=== PATIENT | female | born 1965 | race Caucasian/White ===

== ENCOUNTER 2017-11-18 11:48 | Inpatient (IN) | payer MEDICARE ==
[~2017-11-18] VITALS: Ht 165.1 cm; Wt 86.2 kg
--- NOTE | 2017-11-18 12:10 | NUR ---
Patient observed in waiting area attempting to push past her family and elope the facility. Security contacted for safety.
--- NOTE | 2017-11-18 13:14 | NUR ---
Patient refusing care, attempting to elope from family and hospital. ERMD notified
[2017-11-18] MEDS ORDERED: CARB200C4 PO (13:55)
[2017-11-18] MEDS ORDERED: ESCI10TA55 PO (13:55)
[2017-11-18] MEDS ORDERED: QUET100T31 PO (13:55)
[2017-11-18] MEDS ORDERED: DONE10TA44 PO (13:55)
--- NOTE | 2017-11-18 14:00 | NUR ---
Patient continuing to refuse care and attempting to elope. JASPREET Luna, speaking with family members. Patient attempting to push past her staff and family to elope. Patient is A/O x1, only speaking "Emerald" and "Huyen" in response to questions from staff. Henry PADRON called, security at bedside for safety.
[2017-11-18] MEDS ORDERED: LORAZEPAM 2 MG/1 ML VIAL ONE (14:03)
[2017-11-18] MEDS ORDERED: diphenhydrAMINE 50 MG/1 ML VIAL ONE (14:03)
[2017-11-18] MEDS ORDERED: HALOPERIDOL LACTATE 5 MG/1 ML VIAL ONE (14:03)
[2017-11-18] MEDS ORDERED: LORAZEPAM 2 MG/1 ML VIAL IM ONE (14:30)
[2017-11-18] MEDS ORDERED: HALOPERIDOL LACTATE 5 MG/1 ML VIAL IM ONE (14:30)
[2017-11-18] MEDS ORDERED: diphenhydrAMINE 50 MG/1 ML VIAL IM ONE (14:30)
[2017-11-18 15:27] LABS: *BILIRUBIN,URIN NEGATIVE (NEGATIVE); *BLOOD, URINE 1+ (NEGATIVE); *CLARITY,URINE SLIGHTLY CLOUDY (CLEAR); *COLOR,URINE YELLOW (YELLOW); *KETONES,URINE NEGATIVE (NEGATIVE); *PROTEIN,URINE NEGATIVE (NEGATIVE); *UROBILINOGEN,URINE 0.2 E.U./dl (NORMAL); LEUKOCYTE ESTERASE ,URINE 2+ (NEGATIVE); NITRITE, URINE POSITIVE (NEGATIVE); PH,URINE 5.5 (5.0-8.0); UGLUCOSE NEGATIVE (NEGATIVE)
[2017-11-18 15:29] LABS: BASOPHILS # (AUTO) 0.1 K/uL (0.0-8.0); BASOPHILS % (AUTO) 1.1 % (0.0-2.0); EOSINOPHILS # (AUTO) 0.1 K/uL (0.0-0.7); HEMATOCRIT 38.5 % (31.2-41.9); HEMOGLOBIN 13.1 g/dL (10.9-14.3); LYMPHOCYTES # (AUTO) 1.5 K/uL (20.0-40.0); LYMPHOCYTES % (AUTO) 25.1 % (20.5-51.5); MEAN CORPUSCULAR HEMOGLOBIN 28.8 uug (24.7-32.8); MEAN CORPUSCULAR HGB CONC 34 g/dL (32.3-35.6); MEAN CORPUSCULAR VOLUME 84.3 fL (75.5-95.3); MONOCYTES # (AUTO) 0.5 K/uL (2.0-10.0); MONOCYTES % (AUTO) 8.7 % (0.0-11.0); NEUTROPHILS # (AUTO) 3.8 K/uL (1.8-8.9); NEUTROPHILS % (AUTO) 64.1 % (38.5-71.5); PLATELET COUNT (AUTO) 280 K/uL (179-408); RED BLOOD CELL COUNT(AUTO) 4.57 MIL/uL (3.63-4.92)
[2017-11-18 15:40] LABS: ETHANOL < 3 MG/DL (0-0)
[2017-11-18 15:44] LABS: *AMPHETAMINE, URINE NEGATIVE (NEGATIVE); *BARBITURATE, URINE NEGATIVE (NEGATIVE); *CANNABINOID, URINE NEGATIVE (NEGATIVE); *COCCAINE, URINE NEGATIVE (NEGATIVE); *OPIATE, URINE NEGATIVE (NEGATIVE); *PHENCYCLIDINE SCREEN,URINE NEGATIVE (NEGATIVE)
[2017-11-18 15:54] LABS: BACTERIA,URINE MANY /HPF (NONE SEEN); SQUAMOUS EPITHELIAL CELL,UR FEW /HPF (NONE SEEN); WBC,URINE 20-50 /HPF (0-3)
[2017-11-18 15:55] LABS: THYROID STIMULATING HORMONE 2.742 mIU/mL (0.358-3.740)
[2017-11-18 15:57] LABS: ALANINE AMINOTRANSFERASE 21 U/L (14-59); ALKALINE PHOSPHATASE 182 U/L (50-136); ASPARTATE AMINOTRANSFERASE 23 U/L (15-37); BILIRUBIN,DIRECT 0.1 mg/dL (0.0-0.2); BILIRUBIN,TOTAL 0.2 mg/dL (0.2-1.0); CARBON DIOXIDE 23 mmol/L (21-32); CHLORIDE 104 mmol/L (98-107); CREATININE 1.1 mg/dL (0.6-1.3); GLUCOSE 88 mg/dL (74-106); POTASSIUM 4.1 mmol/L (3.5-5.1); TOTAL PROTEIN, SERUM 7.6 g/dL (6.4-8.2); UREA NITROGEN, BLOOD 16 mg/dL (7-18)
[2017-11-18 16:12] LABS: ACETAMINOPHEN < 2.0 ug/mL (10-30)
[2017-11-18] MEDS ORDERED: GENTAMICIN SULFATE INJ 80 MG in IV DEXTROSE 5% 100 ML IV ONE (16:30)
[2017-11-18] MEDS ORDERED: IV NORMAL SALINE 1000 ML BAG IV ONE (16:30)
[2017-11-18] MEDS ORDERED: LEVOFLOXACIN 750MG/D5W 150 ML IV ONE ×2 (16:30→17:39)
--- NOTE | 2017-11-18 16:38 | NUR ---
Call placed to [facility], Dr. Miner will be paged.
[2017-11-18] MEDS ORDERED: GENTAMICIN SULFATE 80 MG/2 ML VIAL ONE (16:50)
--- NOTE | 2017-11-18 18:15 | NUR ---
Pt. admitted to TELE, under care of Dr. Miner Belongs List completed
--- NOTE | 2017-11-18 18:20 | NUR ---
PT ARRIVED TO UNIT ON GURNEY, CALM, COOPERATIVE, CONFUSED, AOX1, SPEECH GARBLED AND INCOHERENT, SKIN INTACT, IV SITE INTACT, CONTINUE FLUIDS. RESTING IN BED, NO SIGNS OF DISTRESS AT THIS TIME. UNABLE TO ANSWER QUESTIONS DURING ADMISSION. CONTINUE TO MONITOR.
[2017-11-18 18:42] VITALS: BP 128/69
[2017-11-18 19:00] VITALS: BP 124/88
[2017-11-18] MEDS ORDERED: IV 1/2NS 1000 ML 1,000 ML IV PRN (20:00)
[2017-11-18] MEDS ORDERED: ACETAMINOPHEN 325 MG TABLET PO PRN (20:00)
[2017-11-18] MEDS ORDERED: QUETIAPINE FUMARATE 100 MG TABLET PO ONE (20:00)
[2017-11-18] MEDS ORDERED: MORPHINE SULFATE 4 MG/1 ML DISP.SYRIN IV PRN (20:00)
[2017-11-18] MEDS ORDERED: MAGNESIUM HYDROXIDE 30 ML LIQUID UDC PO PRN (20:00)
[2017-11-18] MEDS: DOCUSATE SODIUM 100 MG CAPSULE PO SCH (21:00)
[2017-11-18] MEDS ORDERED: CEFTRIAXONE 1 G VIAL ONE (23:21)
[2017-11-18] MEDS: CEFTRIAXONE 1 G in IV DEXTROSE 5% 50 ML IV SCH (23:48)
[2017-11-19] VITALS (7 sets, daily range): BP systolic 115–134; BP diastolic 56–71
[2017-11-19] MEDS: PANTOPRAZOLE SODIUM 40 MG TABLET.DR PO SCH (06:24)
[2017-11-19 06:39] LABS: BASOPHILS % (AUTO) 0.9 % (0.0-2.0); EOSINOPHILS # (AUTO) 0.1 K/uL (0.0-0.7); EOSINOPHILS % (AUTO) 1.1 % (0.0-7.0); HEMATOCRIT 39.6 % (31.2-41.9); HEMOGLOBIN 13.2 g/dL (10.9-14.3); LYMPHOCYTES # (AUTO) 1.3 K/uL (20.0-40.0); LYMPHOCYTES % (AUTO) 24.1 % (20.5-51.5); MEAN CORPUSCULAR HEMOGLOBIN 28.3 uug (24.7-32.8); MEAN CORPUSCULAR HGB CONC 33 g/dL (32.3-35.6); MONOCYTES # (AUTO) 0.5 K/uL (2.0-10.0); MONOCYTES % (AUTO) 9.6 % (0.0-11.0); NEUTROPHILS # (AUTO) 3.3 K/uL (1.8-8.9); NEUTROPHILS % (AUTO) 64.3 % (38.5-71.5); PLATELET COUNT (AUTO) 238 K/uL (179-408); RED BLOOD CELL COUNT(AUTO) 4.66 MIL/uL (3.63-4.92); WHITE BLOOD COUNT (AUTO) 5.2 K/uL (3.8-11.8)
[2017-11-19 07:01] LABS: BILIRUBIN,TOTAL 0.2 mg/dL (0.2-1.0); CREATININE 0.9 mg/dL (0.6-1.3); MAGNESIUM 1.8 mg/dL (1.8-2.4); PHOSPHOROUS 3.1 mg/dL (2.5-4.9); TOTAL PROTEIN, SERUM 6.9 g/dL (6.4-8.2)
[2017-11-19 07:08] LABS: THYROID STIMULATING HORMONE 7.49 mIU/mL (0.358-3.740)
[2017-11-19] MEDS: CARBAMAZEPINE 200 MG TABLET PO SCH ×2 (08:23→21:29)
[2017-11-19] MEDS: QUETIAPINE FUMARATE 100 MG TABLET PO SCH ×3 (08:23→16:14)
[2017-11-19] MEDS ORDERED: ESCITALOPRAM OXALATE 10 MG TABLET PO SCH (09:00)
--- NOTE | 2017-11-19 17:15 | NUR ---
Restarted IV line on the right hand 22g. Pt was compliant and stated no pain, tolerated procedure well.
[2017-11-19] MEDS: LORAZEPAM 2 MG/1 ML VIAL IV PRN (19:36)
[2017-11-19] MEDS: CEFTRIAXONE 1 G in IV DEXTROSE 5% 50 ML IV SCH (20:08)
[2017-11-19] MEDS: ATORVASTATIN 20 MG TABLET PO SCH (21:29)
[2017-11-19] MEDS: DOCUSATE SODIUM 100 MG CAPSULE PO SCH (21:29)
--- NOTE | 2017-11-19 21:31 | NUR ---
pt pulled out IV line when attempting to get out of bed again. At this time pt being taken down to CT scan. Compliant with medications at this time. Will restart IV line when she returns.
[2017-11-19] MEDS ORDERED: LORAZEPAM 2 MG/1 ML VIAL IM ONE (22:35)
[2017-11-20] MEDS: LORAZEPAM 2 MG/1 ML VIAL IV PRN ×2 (01:36→20:30)
--- NOTE | 2017-11-20 02:03 | NUR ---
RESTARTED IV TO LEFT FOREARM #20. PATENT AND FLUSHING WELL.
--- NOTE | 2017-11-20 05:14 | NUR ---
Pt sleeping at this time. Was awake all night, trying to get out of bed and out of the room, trying to lift the mattress. Patient oriented to name only, still confused about her situation. Sitter continues to be at bedside.
--- NOTE | 2017-11-20 07:00 | NUR ---
Received patient laying in bed, asleep, in no acute distress. IV site on left hand intact. 1:1 sitter at bedside.
[2017-11-20] MEDS: CARBAMAZEPINE 200 MG TABLET PO SCH ×2 (08:33→20:32)
[2017-11-20] MEDS: QUETIAPINE FUMARATE 100 MG TABLET PO SCH ×3 (08:33→17:11)
[2017-11-20] MEDS: PANTOPRAZOLE SODIUM 40 MG TABLET.DR PO SCH (08:33)
[2017-11-20] MEDS: LEVOTHYROXINE SODIUM 25 MCG TABLET PO SCH (08:33)
[2017-11-20] MEDS: ASPIRIN EC 81 MG TABLET.DR PO SCH (08:33)
[2017-11-20 11:25] VITALS: BP 115/61
--- NOTE | 2017-11-20 12:37 | NUR ---
Patient is in the room, eating lunch at this time. Family at bedside. Patient is calm, in no acute distress. No episode of agitation noted. Will continue to monitor.
[2017-11-20 16:00] VITALS: BP 113/70
--- NOTE | 2017-11-20 18:14 | NUR ---
End of shift note: Patient is awake, alert and oriented x1. In no acute distress. No episode of agitation noted at this time. patient is calm, and resting in bed all day. 1:1 sitter at bedside for safety. All needs attended and met. Will continue to monitor.
--- NOTE | 2017-11-20 19:00 | NUR ---
Received patient in bed. 1:1 Sitter at bedside. Alert and oriented x1. Verbally responsive. Able to make needs known. Denies any pain and discomfort at this time. No acute distress. No SOB. IV site on left arm patent and intact. Patient refusing continuous IVF of 1/2 NS at this time. Kept clean and dry. All needs attended to promptly. Call light within reach. Will continue to monitor.
[2017-11-20 20:13] VITALS: BP 126/80
[2017-11-20] MEDS: CEFTRIAXONE 1 G in IV DEXTROSE 5% 50 ML IV SCH (20:30)
[2017-11-20] MEDS: DOCUSATE SODIUM 100 MG CAPSULE PO SCH (20:30)
[2017-11-20] MEDS: ATORVASTATIN 20 MG TABLET PO SCH (20:30)
--- NOTE | 2017-11-20 21:59 | NUR ---
Patient still noted to be agitated after giving Ativan 1 mg IVP. Keeps getting up and out of bed. Sitter at bedside. Verbalizes that she just wants to sleep. Dr. Avitia in facility and made aware of patients behavior with new orders for another dose of Ativan 1mg IVP x1. New orders noted and carried out. All needs attended to promptly. Call light within reach. Will continue to monitor.
[2017-11-20] MEDS ORDERED: LORAZEPAM 2 MG/1 ML VIAL IV ONE (22:00)
[2017-11-21 05:34] VITALS: BP 101/63
[2017-11-21] MEDS: LEVOTHYROXINE SODIUM 25 MCG TABLET PO SCH (06:13)
[2017-11-21] MEDS: PANTOPRAZOLE SODIUM 40 MG TABLET.DR PO SCH (06:13)
[2017-11-21] MEDS: ASPIRIN EC 81 MG TABLET.DR PO SCH (08:07)
[2017-11-21] MEDS: CARBAMAZEPINE 200 MG TABLET PO SCH ×2 (08:07→20:18)
[2017-11-21] MEDS: QUETIAPINE FUMARATE 100 MG TABLET PO SCH ×4 (08:07→20:19)
[2017-11-21 11:04] VITALS: BP 95/55
--- NOTE | 2017-11-21 13:00 | NUR ---
Spouse at bedside
[2017-11-21 16:09] VITALS: BP 129/85
--- NOTE | 2017-11-21 18:00 | NUR ---
Patient alert, in no distress. Frequently goes to the bathroom, assisted with toileting needs. 1:1 sitter provided for safety. Patient is confused, no behavioral issues, cooperative with patient care.
[2017-11-21 19:00] VITALS: BP 122/78
--- NOTE | 2017-11-21 19:45 | NUR ---
RECEIVED PATIENT ASLEEP IN BED WITH 1:1 SITTER AT BEDSIDE. EASILY AROUSABLE. ALERT TO SELF ONLY, VERY CONFUSED AND DISORIENTED, BUT EASILY REDIRECTED. VS WNL. H/L INTACT INTACT AND PATENT. DENIES PAIN OR DISCOMFORT. NO RESP. DISTRESS NOTED. BED ALARM ON. CALL LIGHT IN REACH. ALL NEEDS ATTENDED. WILL CONTINUE TO MONITOR.
[2017-11-21] MEDS: CEFTRIAXONE 1 G in IV DEXTROSE 5% 50 ML IV SCH (19:52)
[2017-11-21] MEDS: DOCUSATE SODIUM 100 MG CAPSULE PO SCH (20:17)
[2017-11-21] MEDS: ATORVASTATIN 20 MG TABLET PO SCH (20:18)
[2017-11-21] MEDS: CEPHALEXIN MONOHYDRATE 500 MG CAPSULE PO SCH (21:10)
[2017-11-22 05:30] VITALS: BP 107/71
--- NOTE | 2017-11-22 05:59 | NUR ---
PATIENT ASLEEP IN BED. EASILY AROUSABLE. SLEPT WELL THROUGHOUT THE NIGHT. SITTER AT BEDSIDE. CALL LIGHT IN REACH. NO C/O PAIN. ALL NEEDS ATTENDED. WILL CONTINUE TO MONITOR AND ASSESS.
[2017-11-22] MEDS: PANTOPRAZOLE SODIUM 40 MG TABLET.DR PO SCH (06:11)
[2017-11-22] MEDS: LEVOTHYROXINE SODIUM 25 MCG TABLET PO SCH (06:11)
[2017-11-22] MEDS: CEPHALEXIN MONOHYDRATE 500 MG CAPSULE PO SCH ×2 (06:11→13:10)
[2017-11-22] MEDS: CARBAMAZEPINE 200 MG TABLET PO SCH (08:47)
[2017-11-22] MEDS: ASPIRIN EC 81 MG TABLET.DR PO SCH (08:47)
[2017-11-22] MEDS: QUETIAPINE FUMARATE 100 MG TABLET PO SCH ×2 (08:47→13:10)
--- NOTE | 2017-11-22 09:37 | NUR ---
Firearms Report: BRETT submitted Mental Health Report to [facility]J on on 11/22.
[2017-11-22 11:11] VITALS: BP 123/54
--- NOTE | 2017-11-22 14:15 | NUR ---
Patient discharged/transferred to [facility]. Report given to CLARE Orantes. Patient unable to comprehend discharge instructions/teachings. Spencer, spouse notified of discharge/transfer. Belonging list done. IV access removed. Patient is alert, in no distress, cooperative with patient care, no behavioral issues noted. Discharge documents, 14 day hold, tms, h&p submitted to [facility] wire charger.
[2017-11-22] MEDS ORDERED: ASPI-605 PO (15:46)
[2017-11-22] MEDS ORDERED: CEPH-570 PO (15:56)
[2017-11-22] MEDS ORDERED: ATOR20TA PO (15:56)
[2017-11-22] MEDS ORDERED: LEVO50TA PO (16:01)
[2017-11-22] MEDS ORDERED: DOCU-141 PO (16:01)
[2017-11-22] MEDS ORDERED: PANT40TA2 PO (16:01)
[2017-11-23] MEDS ORDERED: LEVOTHYROXINE SODIUM 50 MCG TABLET PO SCH (07:00)
[2017-11-23] MEDS ORDERED: LEVOTHYROXINE SODIUM 25 MCG TABLET PO SCH (07:00)
== END 2017-11-22 14:15 | DRG 871 ==
LOC: ER 11:48 → TELE 18:00 → MED 11-19 10:04
PROVIDERS: ADMIT Internal Medicine; ATTEND Internal Medicine
DX: A41.51 Sepsis due to Escherichia coli [E. coli] (principal); G92 Toxic encephalopathy; E87.2 Acidosis; D68.59 Other primary thrombophilia; E66.01 Morbid (severe) obesity due to excess calories; N39.0 Urinary tract infection, site not specified; G31.09 Other frontotemporal neurocognitive disorder; R65.20 Severe sepsis without septic shock; F02.80 Dementia in other diseases classified elsewhere, unspecified severity, without behavioral disturbance, psychotic disturbance, mood disturbance, and anxiety; Z79.899 Other long term (current) drug therapy; Z74.09 Other reduced mobility; Z68.31 Body mass index [BMI] 31.0-31.9, adult; M19.90 Unspecified osteoarthritis, unspecified site; Z90.710 Acquired absence of both cervix and uterus; Z88.2 Allergy status to sulfonamides; F32.9 Major depressive disorder, single episode, unspecified; E78.5 Hyperlipidemia, unspecified; E03.9 Hypothyroidism, unspecified
CPT/HCPCS: 36415; 70030-TC; 70450; 71045; 80307; 83550; 83605; 83735; 84100; 84443; 85025; 85730; 87040; 87086; 93005; A4663; G0480; G0480-TC; J0696; J1200; J1580; J1630; J1956; J2060; J2270; J3490; J7030; J7060

== ENCOUNTER 2017-11-22 15:08 | Inpatient (IN) | payer MEDICARE ==
[~2017-11-22] VITALS: Ht 162.6 cm; Wt 91.6 kg
[~2017-11-22 15:08] MED LIST: CARB200C4 PO; DONE10TA44 PO; ESCI10TA55 PO; QUET100T31 PO
[2017-11-22] MEDS ORDERED: MAG HYDROX/AL HYDROX/SIMETH 30 ML LIQUID UDC PO PRN (15:30)
[2017-11-22] MEDS ORDERED: MAGNESIUM HYDROXIDE 30 ML LIQUID UDC PO PRN (15:30)
[2017-11-22 15:41] VITALS: BP 115/86
--- NOTE | 2017-11-22 15:45 | NUR ---
52 YEAR OLD ADMITTED TO ROOM 139A FOR PSYCHOSIS NOS ,PT IS CONFUSED ,V/S ARE STABLE .ORIENT THE PT TO ROOM ,PT IS WALKING IN THE HALLWAY .PT SEEN BY DR VIZCAINO
[2017-11-22] MEDS ORDERED: ASPI-605 PO (15:46)
--- NOTE | 2017-11-22 15:54 | NUR ---
Initial Discharge Instructions: Patient current resides at home with her , adult dtr, brother, and mother [[address], [place] [address]; [phone]]. Spoke with patient's , Spencer Robersno ([phone]) who states he would like the patient to return home with him upon discharge. SW will continue to collaborate with pt, family, and MD regarding appropriate discharge plan for the patient. SW will form a safe and proper discharge plan.
[2017-11-22] MEDS ORDERED: ATOR20TA PO (15:56)
[2017-11-22] MEDS ORDERED: CEPH-570 PO (15:56)
[2017-11-22] MEDS ORDERED: LEVO50TA PO (16:01)
[2017-11-22] MEDS ORDERED: PANT40TA2 PO (16:01)
[2017-11-22] MEDS ORDERED: DOCU-141 PO (16:01)
[2017-11-22] MEDS: LORAZEPAM 0.5 MG TABLET PO PRN (17:25)
[2017-11-22 20:53] VITALS: BP 126/81
[2017-11-22] MEDS: CEPHALEXIN MONOHYDRATE 500 MG CAPSULE PO SCH (21:24)
[2017-11-22] MEDS: ZOLPIDEM 5 MG TABLET PO PRN (21:27)
--- NOTE | 2017-11-22 22:30 | NUR ---
received to care, appearing confused, wandering at times, going into other peers beds, but easy to redirect. compliant with medications and staff direction. PRMorgan mccullough was given, at 2126. as of 2229, she appears to be asleep. no distress noted. will continue to monitor closely.
[2017-11-23] MEDS: LORAZEPAM 0.5 MG TABLET PO PRN ×4 (03:49→23:35)
[2017-11-23] MEDS: ACETAMINOPHEN 325 MG TABLET PO PRN ×3 (03:49→23:35)
--- NOTE | 2017-11-23 03:49 | NUR ---
pt was wandering the hallway. redirected back to her room, twice. PRN ativan was given, and she went back to bed.
--- NOTE | 2017-11-23 06:00 | NUR ---
slept 6.5 hours.
[2017-11-23] MEDS: CEPHALEXIN MONOHYDRATE 500 MG CAPSULE PO SCH ×3 (06:29→21:28)
[2017-11-23 08:10] VITALS: BP 116/77
[2017-11-23] MEDS: CARBAMAZEPINE 200 MG TABLET PO SCH ×2 (14:45→21:28)
[2017-11-23] MEDS: QUETIAPINE FUMARATE 100 MG TABLET PO SCH ×3 (14:45→21:28)
[2017-11-23 16:18] VITALS: BP 120/85
--- NOTE | 2017-11-23 17:41 | NUR ---
Gps/Residential Specialist- Anxious, restless, throwing bottled water and juices towards the staff, discouraged from doing so, needed frequent redirection constant supervision .Remains on 1:1 Nursing supervision for safety. Guarded, no verbal interactions w/ the staff, eye contact noted.
[2017-11-23 21:20] VITALS: BP 121/77
--- NOTE | 2017-11-23 22:00 | NUR ---
received to care, appearing anxious restless and confused, wandering about unit, 1 to 1 sitter at side at all times, for safety. compliant with medications and staff direction. as of 0, she is in activity room, eating a snack. no distress noted. will continue to monitor closely.
[2017-11-23] MEDS: ZOLPIDEM 5 MG TABLET PO PRN (22:28)
--- NOTE | 2017-11-23 22:28 | NUR ---
remains restless. continues to wander. needs frequent redirection. PRN ambien was given at this time, for insomnia. currently pacing the hallway intermittently, testing the doors, difficult to redirect. will continue to monitor closely.
--- NOTE | 2017-11-23 23:35 | NUR ---
remains restless, pacing the hallway, intrusive with peers rooms, difficult to redirect. PRN ativan was given at this time, for anxiety. sitter remains at side. placed in jacky chair, for safety. currently in room, with lights out. no distress noted. will continue to monitor closely.
--- NOTE | 2017-11-24 01:57 | NUR ---
appears calmer, now. remain sawake, talking to self, sitter remains at side. no distress noted. will continue to monitor closely.
--- NOTE | 2017-11-24 06:00 | NUR ---
slept 30 minutes, total. remains awake, and up in jacky chair. sitter remains at side.no distress noted.
[2017-11-24] MEDS: CEPHALEXIN MONOHYDRATE 500 MG CAPSULE PO SCH ×3 (06:15→20:28)
[2017-11-24 07:30] VITALS: BP 129/79
[2017-11-24] MEDS: CARBAMAZEPINE 200 MG TABLET PO SCH ×2 (08:39→20:28)
[2017-11-24] MEDS: QUETIAPINE FUMARATE 100 MG TABLET PO SCH ×3 (08:40→17:02)
[2017-11-24 16:26] VITALS: BP 123/74
--- NOTE | 2017-11-24 16:53 | NUR ---
Gps/Film Booker- Remains on 1:1 Nursing supervision for safety, unpredictable behavior, needed redirections from time to time, throwing bottled water at the staff, discouraged from doing so, follows simple directions , poor memory, forgetful.
[2017-11-24] MEDS: diphenhydrAMINE 50 MG CAPSULE PO SCH (20:28)
[2017-11-24] MEDS: QUETIAPINE FUMARATE 200 MG TABLET PO SCH (20:28)
[2017-11-24 21:09] VITALS: BP 125/72
--- NOTE | 2017-11-24 22:00 | NUR ---
received to care, confused and disorganized, wandering about unit, 1 to 1 sitter at side at all times, for safety. compliant with medications and staff direction. as of 0, she is in bed, but alternates between lying in bed, and pacing the hallway. easy to redirect, but needs it done frequently. no aggressive behaviors noted, this evening. will continue to monitor closely.
[2017-11-24] MEDS: ACETAMINOPHEN 325 MG TABLET PO PRN (22:01)
[2017-11-24] MEDS: LORAZEPAM 0.5 MG TABLET PO PRN (22:01)
--- NOTE | 2017-11-24 22:01 | NUR ---
PRN ativan, given for restlessness. currently pacing the hallway. redirected back to bed. will continue to monitor closely.
--- NOTE | 2017-11-24 23:30 | NUR ---
lying bed. appears calmer. sleeping intermittently.
--- NOTE | 2017-11-25 05:00 | NUR ---
slept 1.75 hours, total. currently up in jacky chair. sitter, at side. no distress noted.
[2017-11-25] MEDS: CEPHALEXIN MONOHYDRATE 500 MG CAPSULE PO SCH ×3 (05:59→22:16)
[2017-11-25 08:09] VITALS: BP 111/85
[2017-11-25] MEDS: QUETIAPINE FUMARATE 100 MG TABLET PO SCH ×4 (09:00→17:11)
[2017-11-25] MEDS: CARBAMAZEPINE 200 MG TABLET PO SCH ×3 (09:00→20:35)
--- NOTE | 2017-11-25 11:22 | NUR ---
INITIALLY RECEIVED Pt IN BED THIS MORNING, SLEEPING AND EASILY AGITATED WHEN NURSE TRIED TO WAKE HER UP FOR ASSESSMENT AND MORNING MEDS. Pt REPORTEDLY DID NOT SLEEP WELL LAST NIGHT. 1:1 SITTER AT BEDSIDE FOR SAFETY. HELD MEDS AND ASSESSMENT THIS MORNING. Pt WOKE UP AT AROUND 1100 TO USE THE BATHROOM. ASSESSMENT WAS DONE BY NURSE, Pt IS A/O X [address], BUT NOT TO TIME. Pt DENIES S/I, COMPLIANT WITH MEDS AND CARE STAFF. Pt COMPLAINED OF HEADACHE AND REQUESTED PAIN MEDS. WILL ADMINISTER PAIN MEDS PRN PER MD ORDER. Pt IN BED WITH NO HOSTILE OR AGGRESSIVE BEHAVIORS NOTED.
--- NOTE | 2017-11-25 12:01 | NUR ---
Pt WAS RE-ASSESSED BEFORE ADMINISTERING PAIN MEDS FOR HEADACHE, BUT Pt WAS IN DEEP SLEEP AND UNABLE TO SCALE PAIN. NO DISTRESS NOTED BY NURSE. WILL HOLD PAIN MED FOR NOW, WILL CONTINUE TO MONITOR Pt CLOSELY.
[2017-11-25 16:58] VITALS: BP 125/89
[2017-11-25] MEDS: LORAZEPAM 0.5 MG TABLET PO PRN (19:05)
[2017-11-25] MEDS: ACETAMINOPHEN 325 MG TABLET PO PRN (19:05)
--- NOTE | 2017-11-25 19:06 | NUR ---
Pt WAS NOTED ANXIOUS AND PACING ON HALLWAY, ENTERING OTHER Pt ROOMS. GIVEN ATIVAN 0.5 MG PO PRN FOR ANXIETY.
[2017-11-25 20:00] VITALS: BP 113/75
[2017-11-25] MEDS: ATORVASTATIN 20 MG TABLET PO SCH (20:35)
[2017-11-25] MEDS: DOCUSATE SODIUM 100 MG CAPSULE PO SCH (20:35)
[2017-11-25] MEDS: diphenhydrAMINE 50 MG CAPSULE PO SCH (20:35)
[2017-11-25] MEDS: QUETIAPINE FUMARATE 200 MG TABLET PO SCH (20:36)
[2017-11-26] MEDS: PANTOPRAZOLE SODIUM 40 MG TABLET.DR PO SCH (06:27)
[2017-11-26] MEDS: LEVOTHYROXINE SODIUM 50 MCG TABLET PO SCH (06:28)
[2017-11-26] MEDS: CEPHALEXIN MONOHYDRATE 500 MG CAPSULE PO SCH (06:28)
--- NOTE | 2017-11-26 06:36 | NUR ---
Continue 1:1 observation for safety. Patient slept a total of six and a half hours of sleep.
[2017-11-26 07:30] VITALS: BP 103/65
[2017-11-26] MEDS: QUETIAPINE FUMARATE 100 MG TABLET PO SCH ×3 (08:08→16:24)
[2017-11-26] MEDS: ASPIRIN EC 81 MG TABLET.DR PO SCH (08:08)
[2017-11-26] MEDS: CARBAMAZEPINE 200 MG TABLET PO SCH ×2 (08:08→20:44)
[2017-11-26] MEDS ORDERED: PANTOPRAZOLE SODIUM 40 MG TABLET.DR PO SCH (09:00)
[2017-11-26] MEDS ORDERED: LEVOTHYROXINE SODIUM 50 MCG TABLET PO SCH (09:00)
[2017-11-26 15:10] VITALS: BP 115/77
[2017-11-26] MEDS: LORAZEPAM 0.5 MG TABLET PO PRN (16:24)
--- NOTE | 2017-11-26 17:59 | NUR ---
1715: Pt tried to AWOL following the brother and mother, pacing in the hallway, slamming the door, going to other patient's rooms, became increasingly agitated, unable to redirect. Pt threw bottled water to one of the staff when instructed to go back to her room. pt keeps cursing and mumbling words. lucio roque was called. Put patient in gerichair. pt calmed down a little bit, less agitation. sitter at bedside. will monitor.
--- NOTE | 2017-11-26 19:30 | NUR ---
Received pt lying bed, asleep. No s/s of distress noted. Will continue to monitor.
--- NOTE | 2017-11-26 19:30 | NUR ---
1:1 sitter at bedside for safety.
[2017-11-26] MEDS: diphenhydrAMINE 50 MG CAPSULE PO SCH (20:44)
[2017-11-26] MEDS: QUETIAPINE FUMARATE 200 MG TABLET PO SCH (20:44)
[2017-11-26] MEDS: DOCUSATE SODIUM 100 MG CAPSULE PO SCH (20:44)
[2017-11-26] MEDS: ATORVASTATIN 20 MG TABLET PO SCH (20:44)
--- NOTE | 2017-11-26 23:39 | NUR ---
Pt noted to walk to activity room, just sat on a chair and said she did not want to go back to bed yet when asked by RN. Refused to have any snacks when offered; did not reply when asked if she needed anything. Sitter by her side.
--- NOTE | 2017-11-27 00:30 | NUR ---
Episode of restlessness/agitation noted. Would get up a couple of times and pace back and forth in the hallways and activity room. Redirection provided. Went back to bed. Kept at close watch.
[2017-11-27] MEDS: PANTOPRAZOLE SODIUM 40 MG TABLET.DR PO SCH (06:47)
[2017-11-27] MEDS: LEVOTHYROXINE SODIUM 50 MCG TABLET PO SCH (06:47)
--- NOTE | 2017-11-27 06:51 | NUR ---
Went back to asleep right after taking her 7AM meds. Sitter at bedside. Frequent checks done.
[2017-11-27 07:30] VITALS: BP 123/72
[2017-11-27] MEDS: ASPIRIN EC 81 MG TABLET.DR PO SCH (09:48)
[2017-11-27] MEDS: QUETIAPINE FUMARATE 100 MG TABLET PO SCH ×3 (09:48→16:22)
[2017-11-27] MEDS: CARBAMAZEPINE 200 MG TABLET PO SCH ×2 (09:48→20:16)
[2017-11-27 15:25] VITALS: BP 119/84
[2017-11-27] MEDS: LORAZEPAM 0.5 MG TABLET PO PRN ×2 (18:01→22:58)
--- NOTE | 2017-11-27 19:20 | NUR ---
GPS: Received pt on bed comfortably. Pt shows no signs of distress. Sitter at bedside. Will continue to monitor.
[2017-11-27 20:11] VITALS: BP 116/78
[2017-11-27] MEDS: diphenhydrAMINE 50 MG CAPSULE PO SCH (20:14)
[2017-11-27] MEDS: DOCUSATE SODIUM 100 MG CAPSULE PO SCH (20:14)
[2017-11-27] MEDS: ATORVASTATIN 20 MG TABLET PO SCH (20:14)
[2017-11-27] MEDS: QUETIAPINE FUMARATE 200 MG TABLET PO SCH (20:14)
--- NOTE | 2017-11-27 20:25 | NUR ---
GPS: Took bedtime meds.as ordered without any problems. Remains on 1:1 sitter. Continues to be unpredictable,responding to internal stimuli. Needs frequent re-direction at this time. No aggressive behavior noted. Safe environment provided.
--- NOTE | 2017-11-27 23:00 | NUR ---
GPS: Pt.is anxious,pacing and easily agitated when being re-directed at this time. 1:1 sitter continues for safety. Ativan 0.5mg given PO. Will monitor effectiveness.
[2017-11-27] MEDS ORDERED: OLANZAPINE 10 MG VIAL IM ONE (23:55)
--- NOTE | 2017-11-27 23:55 | NUR ---
GPS: Pt.was agitated,pacing,going in and out of other pts.room. Unable to be re-directed. Pt.trying to hit staff and also was kicking staff when being accompanied back to her room. was notified of pts behavior with new orders. Zyprexa 10mg given IM on left deltoid. Safe environment provided. Sitter at bedside. Will monitor effectiveness of med.
--- NOTE | 2017-11-28 01:03 | NUR ---
GPS: PT DOZING ON AND OFF AT THIS TIME.NO FURTHER AGGRESIVE BEHAVIOR NOTED. 1:1 CONTINUES FOR SAFETY. NO ACUTE RESPIRATORY DISTRESS NOTED. WILL CONTINUE TO MONITOR.
[2017-11-28] MEDS: LEVOTHYROXINE SODIUM 50 MCG TABLET PO SCH (06:35)
[2017-11-28] MEDS: PANTOPRAZOLE SODIUM 40 MG TABLET.DR PO SCH (06:35)
--- NOTE | 2017-11-28 06:46 | NUR ---
GPS: PT SLEPT 4.45 HOURS OF SLEEP. PT CALM AT THIS TIME, NO AGGRESIVE BEHAVIOR. TOOK HER LOGISTICS DIRECTOR MEDICATION.
[2017-11-28 07:30] VITALS: BP 123/50
[2017-11-28] MEDS: ASPIRIN EC 81 MG TABLET.DR PO SCH (09:50)
[2017-11-28] MEDS: OLANZAPINE ZYDIS 5 MG TAB.RAPDIS PO SCH ×2 (09:50→16:10)
[2017-11-28] MEDS: CARBAMAZEPINE 200 MG TABLET PO SCH ×2 (09:50→20:01)
[2017-11-28 15:06] VITALS: BP 96/54
[2017-11-28] MEDS: ATORVASTATIN 20 MG TABLET PO SCH (20:01)
[2017-11-28] MEDS: QUETIAPINE FUMARATE 200 MG TABLET PO SCH (20:02)
[2017-11-28] MEDS: diphenhydrAMINE 50 MG CAPSULE PO SCH (20:02)
[2017-11-28] MEDS: DOCUSATE SODIUM 100 MG CAPSULE PO SCH (20:02)
[2017-11-28 20:22] VITALS: BP 127/83
[2017-11-28] MEDS: LORAZEPAM 0.5 MG TABLET PO PRN (22:52)
[2017-11-28] MEDS ORDERED: OLANZAPINE 10 MG VIAL IM ONE (23:55)
[2017-11-29] MEDS: LORAZEPAM 0.5 MG TABLET PO PRN ×2 (05:45→14:20)
[2017-11-29] MEDS: PANTOPRAZOLE SODIUM 40 MG TABLET.DR PO SCH (06:04)
[2017-11-29] MEDS: LEVOTHYROXINE SODIUM 50 MCG TABLET PO SCH (06:04)
[2017-11-29 07:30] VITALS: BP 118/83
--- NOTE | 2017-11-29 07:35 | NUR ---
Pt noted to walk to activity room, just sat on a chair and said she did not want to go back to bed did not reply when asked if she needed anything. Sitter by her side.
[2017-11-29] MEDS: CARBAMAZEPINE 200 MG TABLET PO SCH ×2 (08:02→20:16)
[2017-11-29] MEDS: ASPIRIN EC 81 MG TABLET.DR PO SCH (08:02)
[2017-11-29] MEDS: OLANZAPINE ZYDIS 5 MG TAB.RAPDIS PO SCH ×2 (08:03→16:18)
[2017-11-29 16:26] VITALS: BP 132/103
[2017-11-29] MEDS: QUETIAPINE FUMARATE 200 MG TABLET PO SCH (20:16)
[2017-11-29] MEDS: DOCUSATE SODIUM 100 MG CAPSULE PO SCH (20:16)
[2017-11-29] MEDS: diphenhydrAMINE 50 MG CAPSULE PO SCH (20:17)
[2017-11-29] MEDS: ATORVASTATIN 20 MG TABLET PO SCH (20:17)
[2017-11-29 20:37] VITALS: BP 121/88
[2017-11-30] MEDS: PANTOPRAZOLE SODIUM 40 MG TABLET.DR PO SCH (06:26)
[2017-11-30] MEDS: LEVOTHYROXINE SODIUM 50 MCG TABLET PO SCH (06:26)
[2017-11-30 08:00] VITALS: BP 123/78
[2017-11-30] MEDS: CARBAMAZEPINE 200 MG TABLET PO SCH ×2 (08:09→20:07)
[2017-11-30] MEDS: OLANZAPINE ZYDIS 5 MG TAB.RAPDIS PO SCH ×2 (08:10→16:01)
[2017-11-30] MEDS: ASPIRIN EC 81 MG TABLET.DR PO SCH (08:10)
--- NOTE | 2017-11-30 09:34 | NUR ---
received to care, confused and disorganized, , 1 to 1 sitter at side at all times, for safety. compliant with medications and staff direction. easy to redirect, but needs it done frequently. no aggressive behaviors noted, will continue to monitor closely.
[2017-11-30 16:00] VITALS: BP 119/71
[2017-11-30] MEDS: ATORVASTATIN 20 MG TABLET PO SCH (20:06)
[2017-11-30] MEDS: diphenhydrAMINE 50 MG CAPSULE PO SCH (20:06)
[2017-11-30] MEDS: QUETIAPINE FUMARATE 200 MG TABLET PO SCH (20:07)
[2017-11-30] MEDS: DOCUSATE SODIUM 100 MG CAPSULE PO SCH (20:07)
[2017-11-30 21:00] VITALS: BP 134/74
--- NOTE | 2017-11-30 22:00 | NUR ---
received to care, sitting in her room, sitter at side, pleasant and calm, upon approach. compliant with medications and staff direction. as of 2199, she appears to be asleep. no distress noted. will continue to monitor closely.
--- NOTE | 2017-12-01 06:00 | NUR ---
slept 9.0 hours, total.
[2017-12-01] MEDS: PANTOPRAZOLE SODIUM 40 MG TABLET.DR PO SCH (06:04)
[2017-12-01] MEDS: LEVOTHYROXINE SODIUM 50 MCG TABLET PO SCH (06:04)
[2017-12-01 07:30] VITALS: BP 118/83
[2017-12-01] MEDS: OLANZAPINE ZYDIS 5 MG TAB.RAPDIS PO SCH (08:15)
[2017-12-01] MEDS: CARBAMAZEPINE 200 MG TABLET PO SCH (08:15)
[2017-12-01] MEDS: ASPIRIN EC 81 MG TABLET.DR PO SCH (08:15)
--- NOTE | 2017-12-01 08:28 | NUR ---
Discharge Note: Patient will be discharged to [facility] [[address], [place] [address]; ] via private transportation at 11:30am. Spoke with Dottie at the facility who has arranged transportation for the patient, and states they are ready to accept the patient today. Spoke with patient's , Spencer Roberson ([phone]) who is aware and agreeable with discharge plans. Patient is alert and oriented x1, and is cooperative. Patient will follow-up at the facility with Dr. Parikh (Carburetor Mechanic) and Dr. Thornton (Psychiatrist). Patient was given referrals for [facility] ([phone]), [facility], and [facility] [[address] [place] [address]; [phone]].
--- NOTE | 2017-12-01 14:20 | NUR ---
Pt left facility via w/c accompanied by [facility] Staff vx1 via private car. Pt in fair condition. No s/s of acute distress noted. A &O x1 and able to follow directions. Denies pain. Left with all her valuables. Left with discharge summary, instructions, and medication recon. ID band removed.
== END 2017-12-01 16:10 | DRG 885 ==
LOC: GPS 15:08
PROVIDERS: ADMIT Psychiatry & Neurology Psychiatry; ATTEND Internal Medicine
DX: F23 Brief psychotic disorder (principal); F02.81 Dementia in other diseases classified elsewhere, unspecified severity, with behavioral disturbance; D68.59 Other primary thrombophilia; G31.09 Other frontotemporal neurocognitive disorder; N39.0 Urinary tract infection, site not specified; Z79.82 Long term (current) use of aspirin; F41.9 Anxiety disorder, unspecified; E66.9 Obesity, unspecified; Z68.35 Body mass index [BMI] 35.0-35.9, adult; Z71.3 Dietary counseling and surveillance; Z79.899 Other long term (current) drug therapy; E78.00 Pure hypercholesterolemia, unspecified; F32.9 Major depressive disorder, single episode, unspecified; B96.20 Unspecified Escherichia coli [E. coli] as the cause of diseases classified elsewhere; Z88.2 Allergy status to sulfonamides; E78.5 Hyperlipidemia, unspecified; Z74.09 Other reduced mobility; M19.90 Unspecified osteoarthritis, unspecified site; E03.9 Hypothyroidism, unspecified
CPT/HCPCS: 36415; A4663; J2358; Q0163